=== PATIENT | female | born 1975 | race Caucasian/White ===

== ENCOUNTER → 2021-05-24 17:18 | Outpatient (CLI) | payer OTHER, SELFPAY ==
--- NOTE | ~2021-05-24 | MM_ITS ---
EXAMINATION: MM screening [facility] BI w maryjane HISTORY: Screening mammogram TECHNIQUE: Craniocaudal and mediolateral oblique 3-D tomosynthesis images were obtained and synthetic 2-D images were generated. CAD analysis was submitted and interpreted. COMPARISON: 08/18/2019, 06/08/2017, 10/31/2014 BREAST PARENCHYMAL COMPOSITION: There are scattered areas of fibroglandular density. FINDINGS: There is no evidence of suspicious mass, calcification, or architectural distortion to sugg est malignancy in either breast. There has been no suspicious interval change. IMPRESSION: 1. No mammographic evidence of malignancy. 2. Recommend routine screening mammography in one year. BI-RADS Category 1: Negative Reviewed, dictated and finalized at location A.
== END ==
PROVIDERS: Visit Provider Obstetrics & Gynecology
DX: Z12.31 Encounter for screening mammogram for malignant neoplasm of breast (principal)
CPT/HCPCS: 77063; 77067

== ENCOUNTER 2022-01-22 08:34 | Outpatient (CLI) | payer BC, SELFPAY ==
[2022-01-22 18:53] LABS: Basophils Percent Auto 0.5 % (0.2-1.2); Eosinophils Absolute Auto 0.1 K/mm3 (0-0.3); Eosinophils Percent Auto 1.3 % (0-4.4); Hematocrit 43.4 % (37.0-47.0); Hemoglobin 13.9 g/dL (12.0-15.0); Immature Granulocyte Absolute 0.01 K/mm3 (0.00-0.031); Immature Granulocyte Percent A 0.2 % (0-0.5); Lymphocytes Absolute Auto 2.74 K/mm3 (0.9-3.2); Lymphocytes Percent Auto 45.4 % (18.3-44.2); Mean Corpuscular Hemoglobin 30.5 pg (26-34); Mean Corpuscular Volume 95.4 fl (80-100); Mean Platelet Volume 10.4 fl (7.4-10.4); Monocytes Absolute Auto 0.5 K/mm3 (0.1-0.6); Monocytes Percent Auto 7.6 % (2.6-8.5); Neutrophils Absolute Auto 2.7 K/mm3 (1.3-6.7); Platelet Count Result 244 k/mm3 (150-375); Red Blood Count 4.55 M/mm3 (4.2-5.4); Red Cell Distribution Width 12.6 % (11.5-14.5)
[2022-01-22 20:09] LABS: Serum Qual hCG Negative
[2022-01-22 20:10] LABS: SPREG INTERNAL CONTROL Positive
[2022-01-22 20:19] LABS: Alanine Aminotransferase 19 U/L (4-35); Albumin Level 4.2 g/dL (3.5-5.1); Alkaline Phosphatase 72 U/L (38-126); Anion Gap 8 mmol/L (8-16); Aspartate Amino Transferase 26 U/L (14-36); Bilirubin,Total 0.6 mg/dL (0.2-1.3); Blood Urea Nitrogen 12 mg/dL (7-17); Calcium 9.3 mg/dL (8.4-10.2); Carbon Dioxide 24 mmol/L (22-30); Chloride 104 mmol/L (98-107); Cholesterol 200 mg/dL (0-200); Estimated Glomerular Filt Rate > 60; Glucose 93 mg/dL (65-110); HDL Direct 75 mg/dL; Potassium 3.9 mmol/L (3.4-5.0); Sodium 136 mmol/L (137-145); Triglycerides 68 mg/dL (<150)
[2022-01-22 20:30] LABS: LDL Cholesterol Direct 114 mg/dL
[2022-01-22 21:08] LABS: Free T4 Free Thyroxine Reflex 0.89 ng/dL (0.78-2.19)
[2022-01-22 21:59] LABS: Total Triiodothyronine (T3) 1.54 NG/ML (0.97-1.69)
== END 2022-01-22 08:35 | disposition home or self-care (01) ==
PROVIDERS: PCP Family Medicine; Visit Provider Family Medicine
DX: Z00.00 Encounter for general adult medical examination without abnormal findings (principal); E66.9 Obesity, unspecified; R12 Heartburn; F41.9 Anxiety disorder, unspecified
CPT/HCPCS: 36415; 80053; 80061; 84439; 84443; 84480; 84703; 85025

== ENCOUNTER 2022-03-31 08:39 | Outpatient (CLI) | payer BC, SELFPAY ==
[2022-04-01 07:31] LABS: Free T4 Free Thyroxine Reflex 1.01 ng/dL (0.78-2.19)
[2022-04-01 08:29] LABS: Total Triiodothyronine (T3) 1.36 NG/ML (0.97-1.69)
[2022-04-03 05:53] LABS: Thyroid Peroxidase Antibodies <1 IU/mL (<9)
== END 2022-03-31 08:40 | disposition home or self-care (01) ==
PROVIDERS: PCP Family Medicine; Visit Provider Family Medicine
DX: R79.89 Other specified abnormal findings of blood chemistry (principal)
CPT/HCPCS: 36415; 84439; 84443; 84480; 86376

== ENCOUNTER → 2022-08-18 16:47 | Outpatient (CLI) | payer BC, SELFPAY ==
--- NOTE | ~2022-08-18 | MM_ITS ---
EXAMINATION: MM screening [facility] BI w maryjane HISTORY: Screening TECHNIQUE: Craniocaudal and mediolateral oblique 3-D tomosynthesis images were obtained and synthetic 2-D images were generated. CAD analysis was submitted and interpreted. COMPARISON: Comparison to multiple prior studies sequentially, with oldest reviewed study dated 06/08. BREAST PARENCHYMAL COMPOSITION: There are scattered areas of fibroglandular density. FINDINGS: There is no evidence of suspicious mass, calcification, or architectural distortion to sugg est malignancy in either breast. There has been no suspicious interval change. IMPRESSION: 1. No mammographic evidence of malignancy. 2. Recommend routine screening mammography in one year. BI-RADS Category 1: Negative Reviewed, dictated and finalized at location A.
== END ==
PROVIDERS: PCP Family Medicine; Visit Provider Obstetrics & Gynecology
DX: Z12.31 Encounter for screening mammogram for malignant neoplasm of breast (principal)
CPT/HCPCS: 77063; 77067

== ENCOUNTER → 2023-12-08 16:14 | Outpatient (CLI) | payer BC, SELFPAY ==
--- NOTE | ~2023-12-08 | MM_ITS ---
EXAMINATION: MM screening [facility] BI w maryjane HISTORY: Screening TECHNIQUE: Craniocaudal and mediolateral oblique 3-D tomosynthesis images were obtained and synthetic 2-D images were generated. CAD analysis was submitted and interpreted. COMPARISON: Comparison to multiple prior studies sequentially, with oldest reviewed study dated 10/10. BREAST PARENCHYMAL COMPOSITION: There are scattered areas of fibroglandular density. FINDINGS: There is no evidence of suspicious mass, calcification, or architectural distortion to sugg est malignancy in either breast. There has been no suspicious interval change. IMPRESSION: 1. No mammographic evidence of malignancy. 2. Recommend routine screening mammography in one year. BI-RADS Category 1: Negative Reviewed, dictated and finalized at location A. CO ARTIST
== END ==
PROVIDERS: PCP Obstetrics & Gynecology; Visit Provider Obstetrics & Gynecology
DX: Z12.31 Encounter for screening mammogram for malignant neoplasm of breast (principal)
CPT/HCPCS: 77063; 77067

== ENCOUNTER 2024-06-15 09:00 | Outpatient (CLI) | payer BC, SELFPAY ==
[2024-06-15 19:38] LABS: Hematocrit 42.1 % (37.0-47.0); Hemoglobin 13.6 g/dL (12.0-15.0); Mean Corpuscular HGB Conc 32.3 g/dl (32-36); Mean Corpuscular Hemoglobin 31.1 pg (26-34); Mean Corpuscular Volume 96.3 fl (80-100); Mean Platelet Volume 10.7 fl (7.4-10.4); Platelet Count Result 255 k/mm3 (150-375); Red Blood Count 4.37 M/mm3 (4.2-5.4); Red Cell Distribution Width 13.3 % (11.5-14.5); White Blood Count 5.1 K/mm3 (4.5-10.0)
[2024-06-15 19:50] LABS: Alanine Aminotransferase 23 U/L (6-35); Albumin Level 4.3 g/dL (3.5-5.1); Alkaline Phosphatase 62 U/L (38-126); Anion Gap 11 mmol/L (4-12); Aspartate Amino Transferase 63 U/L (14-36); Bilirubin,Total 0.5 mg/dL (0.2-1.3); Blood Urea Nitrogen 18 mg/dL (7-17); Calcium 9.8 mg/dL (8.4-10.2); Carbon Dioxide 25 mmol/L (22-30); Chloride 102 mmol/L (98-107); Cholesterol 187 mg/dL (0-200); Estimated Glomerular Filt Rate > 60; Glucose 97 mg/dL (65-110); HDL Direct 75 mg/dL; Potassium 4.3 mmol/L (3.4-5.0); Sodium 138 mmol/L (137-145); Triglycerides 76 mg/dL (<150)
[2024-06-15 20:04] LABS: LDL Cholesterol Direct 103 mg/dL
[2024-06-15 20:36] LABS: Vitamin D 25 Hydroxy 87.6 ng/mL
== END 2024-06-15 09:01 | disposition home or self-care (01) ==
PROVIDERS: PCP Family Medicine; Visit Provider Family Medicine
DX: Z00.00 Encounter for general adult medical examination without abnormal findings (principal); E66.9 Obesity, unspecified; F41.9 Anxiety disorder, unspecified; R12 Heartburn; R79.89 Other specified abnormal findings of blood chemistry
CPT/HCPCS: 36415; 80053; 80061; 82306; 84443; 85027

== ENCOUNTER 2024-12-12 00:20 | Day surgery (SDC) | payer BC, SELFPAY ==
[2024-11-30 11:08] VITALS: BMI 35.2
--- OUTSIDE RECORDS SUMMARY | 2024-12-12 00:22 | XMS_ITS | Clinical Summary ---
Author Organization [address] Address [address] [place] [id number] Care Team Providers Care Veneer Gluer Name Role Phone Ky Acuña MD Primary Care Provider [phone] Allergies No known active allergies Medications buPROPion XL (WELLBUTRIN XL) 150 mg 24 hr tablet Take 1 tablet (150 mg total) by mouth daily 1 Active acyclovir (ZOVIRAX) 400 mg tablet TAKE 2 TABLETS BY MOUTH TWICE DAILY FOR 5 DAYS 1 Active Nortrel 7/7/7, 28, 0.5/0.75/1 mg- 35 mcg per tablet Take 1 tablet by mouth daily 1 Active ergocalciferol, vitamin D2, (VITAMIN D2 ORAL) Take by mouth Active ELDERBERRY FRUIT ORAL Take by mouth Activ e multivitamin capsule Take 1 capsule by mouth daily Active magnesium oxide 400 mg magnesium capsule Take by mouth Active benzonatate (TESSALON) 200 mg capsuleIndicati ons:Viral URI with cough Take 1 capsule (200 mg total) by mouth 3 (three) times a day as needed for cough 30 capsule 3 Active Additional Information Patient not taking.Reported on 11/01/2024 Active Problems No known active problems Encounters Date Type Department Care Team Description 11/03/2024 Telephone [facility] at [address] [place] [address] Ирина Bah MA 11/01/2024 10:15 AM GREENHOUSE WORKER Office Visit [facility] at [address] [place] [id number] Jie Lawson, WILMER Acute cystitis with hematuria (Primary Dx); UTI symptoms 11/01/2024 10:09 AM GREENHOUSE WORKER - 11/01/2024 11:59 PM GREENHOUSE [place] [address] UTI symptoms Discharge Disposition: Discharge to home or self care from Last 3 Months Social History Tobacco Use Types Packs/Day Years Used Date Smoking Tobacco: Never Smokeless Tobacco: Never Tobacco Cessation:Counseling Given: Not Answered Comments No Sex and Gender Information Value Date Recorded Sex Assigned at Not on file Legal Sex Female 5:40 PM GREENHOUSE WORKER Gender Identity Not on file Sexual Orientation Not on file Obstetrics History Last Filed Vital Signs Vital Sign Reading Time Taken Comments Blood Pressure 110/62 11/01/2024 10:17 AM GREENHOUSE WORKER Pulse 84 11/01/2024 10:17 AM GREENHOUSE WORKER Temperature 36.7 ??C (98.1 ??F) 11/01/2024 10:[address] Respiratory Rate 18 11/01/2024 10:17 AM GREENHOUSE WORKER Oxygen Saturation 99% 11/01/2024 10:17 AM GREENHOUSE WORKER Inhaled Oxygen Concentration - - Weight 83.9 kg (185 lb) 11/01/2024 10:17 AM GREENHOUSE WORKER Height 152.4 cm (5') 11/01/2024 10:17 AM GREENHOUSE WORKER Body Mass Index 36.13 11/01/2024 10:17 AM GREENHOUSE WORKER Plan of Treatment Health Maintenance Due Date Last Done Comments Breast Cancer Screening-Mammogram 1974 Cervical Cancer Screening 1974 Colon Cancer Screening-Colonoscopy 1974 Depression Screening 1974 Hepatitis C Screening 1974 DTaP/Tdap/Td Vaccine (1 - Tdap) 1985 Hepatitis B Screening 1992 Regular Well Visit/Exam 18-64 1992 Zoster Vaccine (1 of 2) 2024 Covid-19 Vaccine (3 - 2023-2 5 season) 2024 01/19/2021, 12/22/2020 Influenza Vaccine (#1) 2024 Pneumococcal vaccine <65 Aged Out No longer eligible based on patient's age to complete this topic Procedures Procedure Name Priority Date/Time Associated Diagnosis Comments POCT URINALYSIS DIPSTICK Routine 11/01/2024 10:18 AM GREENHOUSE WORKER UTI symptoms URINE CULTURE Routine 11/01/2024 10:09 AM GREENHOUSE WORKER UTI symptoms from Last 3 Months Results * (ABNORMAL) POCT urinalysis dipstick (11/01/2024 10:18 AM GREENHOUSE WORKER) Color, Urine, POC Red Clarity, ur, POC Cloudy(A) Clear Glucose, ur, POC Negative Negative MG/DL Bilirubin, ur, POC Negative Negative, Small, Moderate, Large Ketones, ur, POC Negative Negative Specific [place], POC 1.030 1.003 - 1.030 Blood, ur, POC Large(A) Negative pH, ur, POC 6.5 5.0 - 8.0 Protein, ur, POC 100.(A) Negative Urobilinogen, urine, POC 0.2 0.2 - 1.0 mg/dL Nitrite, ur, POC Positive(A) Negative Leukocytes, ur, POC Trace(A) Negative Lot Number [id number] Urine 11/01/2024 10:1 8 AM GREENHOUSE WORKER Jie Lawson NP POINT OF CARE TEST ORDERAB LES Final Result * (ABNORMAL) Urine culture Urine, clean voided (11/01/2024 10:09 AM GREENHOUSE WORKER) Report Final Report: Greater than or equal to 100,000 colonies/mL of Escherichia coli Plus growth of clinically insignificant bacterial jose. (.) Comment:Testing performed by : [facility], [address], [place]., [address] Organism ESCHERICHIA COLI CLINT Organism PLUS GROWTH OF CLINICALLY INSIGNIFICANT JOSE. CLINT Urine, clean voided 11/01/2024 10:09 AM GREENHOUSE WORKER 11/01/2024 6:18 PM GREENHOUSE WORKER Narrative [facility] - 11/03/2024 10:11 AM GREENHOUSE WORKER Testing performed by [facility] Microbiology Laboratory ([phone]) Organism Antibiotic Method Susceptibility Escherichia coli Ampicillin INTERPRETATION Susceptible Escherichia coli Cefazolin INTERPRETATION Susceptible Escherichia coli Nitrofurantoin INTERPRETATION Susceptible Escherichia coli Gentamicin INTERPRETATION Susceptible Escherichia coli Trimethoprim with Sulfamethoxazole IN TERPRETATION Susceptible Escherichia coli Meropenem INTERPRETATION Susceptible Escherichia coli Cefepime INTERPRETATION Susceptible Escherichia coli Ciprofloxacin INTERPRETATION Susceptible Escherichia coli Ceftazidime INTERPRETATION Susceptible Escherichia coli Ceftriaxone INTERPRETATION Susceptible Escherichia coli Piperacillin/Tazobactam INTERPRETATIO N Susceptible Escherichia coli Cephalexin INTERPRETATION Susceptible Escherichia coli Cefuroxime-axetil INTERPRETATION Susceptible Escherichia coli Cefdinir INTERPRETATION Susceptible us Jie Lawson NP LAB MICROBIOLOGY - GENERAL ORDERABLES Final Result [facility] [address] [place] [address] from Last 3 Months Insurance [employer] [place] [employer] [place] Care Teams Veneer Gluer Relationship Specialty Start Date End Date Ky Acuña MD PCP - General Family Practice 07/13/23
--- OUTSIDE RECORDS SUMMARY | 2024-12-12 00:22 | XMS_ITS | Referral Summary ---
Author Organization [facility] [address] [place] [address] Address [address] [place] [address] Care Team Providers Care Client Development Director Name Role Phone Ky Acuña MD Primary Care Provider [phone] Encounters Date Type Department Care Team Description 11/03/2024 Telephone [facility] Medical [facility] Convenient Care at [address] [place] [address] Ирина Bah MA 11/01/2024 10:09 AM WOOD COATER - 11/01/2024 11:59 PM WOOD COATER [place] [address] UTI symptoms Discharge Disposition: Discharge to home or self care 11/01/2024 10:15 AM WOOD COATER Office Visit [facility] Medical [facility]ient Care at [place] [address] [place] [address] Jie Lawson NP Acute cystitis with hematuria (Primary Dx); UTI symptoms from Last 3 Months Allergies No known active allergies Medications buPROPion XL (WELLBUTRIN XL) 150 mg 24 hr tablet Take 1 tablet (150 mg total) by mouth daily 1 Active acyclovir (ZOVIRAX) 400 mg tablet TAKE 2 TABLETS BY MOUTH TWICE DAILY FOR 5 DAYS 1 Active Nortrel 7/7/, 28, 0.5/0.75/1 mg- 35 mcg per tablet [...] 11/01/2024 Active Problems No known active problems Social History Tobacco Use Types Packs/Day Years Used Date Smoking Tobacco: Never Smokeless Tobacco: Never Tobacco Cessation:Counseling Given: Not Answered Comments No Sex and Gender Information Value Date Recorded Sex Assigned at Not on file Legal Sex Female 5:40 PM WOOD COATER Gender Identity Not on file Sexual Orientation Not on file Last Filed Vital Signs Vital Sign Reading Time Taken Comments Blood Pressure 110/62 11/01/2024 10:17 AM WOOD COATER Pulse 84 11/01/2024 10:17 AM WOOD COATER Temperature 36.7 ??C (98.1 ??F) 11/01/2024 10:[address] Respiratory Rate 18 11/01/2024 10:17 AM WOOD COATER Oxygen Saturation 99% 11/01/2024 10:17 AM WOOD COATER Inhaled Oxygen Concentration - - Weight 83.9 kg (185 lb) 11/01/2024 10:17 AM WOOD COATER Height 152.4 cm (5') 11/01/2024 10:17 AM WOOD COATER Body Mass Index 36.13 11/01/2024 10:17 AM WOOD COATER Plan of Treatment Not on file Procedures Procedure Name Priority Date/Time Associated Diagnosis Comments POCT URINALYSIS DIPSTICK Routine 11/01/2024 10:18 AM WOOD COATER UTI symptoms URINE CULTURE Routine 11/01/2024 10:09 AM WOOD COATER UTI symptoms from Last 3 Months Results * (ABNORMAL) POCT urinalysis dipstick (11/01/2024 10:18 AM WOOD COATER) Color, Urine, POC Red Clarity, ur, POC Cloudy(A) Clear Glucose, ur, POC Negative Negative MG/DL Bilirubin, ur, POC Negative Negative, Small, Moderate, Large Ketones, ur, POC Negative Negative Specific [place], POC 1.030 1.003 - 1.030 Blood, ur, POC Large(A) Negative pH, ur, POC 6.5 5.0 - 8.0 Protein, ur, POC 100.(A) Negative Urobilinogen, urine, POC 0.2 0.2 - 1.0 mg/dL Nitrite, ur, POC Positive(A) Negative Leukocytes, ur, POC Trace(A) Negative Lot Number [id number] Urine 11/01/2024 10:1 8 AM WOOD COATER Jie Lawson NP POINT OF CARE TEST ORDERAB LES Final Result * (ABNORMAL) Urine culture Urine, clean voided (11/01/2024 10:09 AM WOOD COATER) Report Final Report: Greater than or equal to 100,000 colonies/mL of Escherichia coli Plus growth of clinically insignificant bacterial jose. (.) Comment:Testing performed by : [facility], [address] [place]., [address] Organism ESCHERICHIA COLI CLINT Organism PLUS GROWTH OF CLINICALLY INSIGNIFICANT JOSE. CLINT Urine, clean voided 11/01/2024 10:09 AM WOOD COATER 11/01/2024 6:18 PM WOOD COATER Narrative [facility] - 11/03/2024 10:11 AM WOOD COATER Testing performed by [facility] Microbiology Laboratory ([phone]) Organism Antibiotic Method Susceptibility Escherichia coli Ampicillin [...] INTERPRETATION Susceptible Escherichia coli Cefdinir INTERPRETATION Susceptible Jie Lawson NP LAB MICROBIOLOGY - GENERAL ORDERABLES Final Result [facility] [address] Department [place] [address] from Last 3 Months Insurance [employer] [place] Care Teams Client Development Director Relationship Specialty Start Date End Date Ky Acuña MD PCP - General Family Practice 07/13/23
--- OUTSIDE RECORDS SUMMARY | 2024-12-12 00:23 | XMS_ITS | Referral Summary ---
Author Organization [facility] Address [address] [place] [address] Care Team Providers Care Teacher Associate Name Role Phone Unknown, Provider Primary Care Provider Unavaila ble Source Comments [facility],non-owned Affiliates and Associated Physician Practices is amultiple site organization consisting of ambulatory clinics and hospital sitesin [place], [place] and [place]. This disclosure is being madepursuant to the Care Everywhere program and may not contain all information available regarding this patient. Last updated 18[employer] [facility] Allergies No known active allergies Medications Be aware that medications may not be up to date on this document. Always verify current medications with the patient. No known medications Social History Tobacco Use Types Packs/Day Years Used Date Smoking Tobacco: Never Sex and Gender Information Value Date Recorded Sex Assigned at Not on file Gender Identity Not on file Sexual Orientation Not on file Last Filed Vital Signs Vital Sign Reading Time Taken Comments Blood Pressure 118/70 12/30/2017 12:12 PM ADVERTISING CONSULTANT Pulse 93 12/30/2017 12:12 PM ADVERTISING CONSULTANT Temperature 37.3 ??C (99.1 ??F) 12/30/2017 12:[address] Respiratory Rate 17 12/07/2016 10:28 AM ADVERTISING CONSULTANT Oxygen Saturation 97% 12/07/2016 10:28 AM ADVERTISING CONSULTANT Inhaled Oxygen Concentration - - Weight 68 kg (150 lb) 12/30/2017 12:12 PM ADVERTISING CONSULTANT Height 152.4 cm (5') 12/30/2017 12:12 PM ADVERTISING CONSULTANT Body Mass Index 29.29 12/30/2017 12:12 PM ADVERTISING CONSULTANT Plan of Treatment Not on file Care Teams Teacher Associate Relationship Specialty Start Date End Date Unknown, Provider PCP - General 12/07/16
--- OUTSIDE RECORDS SUMMARY | 2024-12-12 00:23 | XMS_ITS | Patient Health Summary ---
Author Organization [facility] Address [address] [place] [place] [address] Care Team Providers Care Telecom Analyst Name Role Phone Unknown, Provider Primary Care Provider Unavaila ble Note from [facility],non-owned Affiliates and Associated Physician Practices is amultiple site organization consisting of ambulatory clinics and hospital sitesin [place], [place], [place] and [place]. This disclosure is being madepursuant to the Care Everywhere program and may not contain all information available regarding this patient. Last updated 18.[facility] Allergies No known active allergies Medications Be [...] Comments Blood Pressure 118/70 12/30/2017 12:12 PM CONVENTIONAL MACHINIST Pulse 93 12/30/2017 12:12 PM CONVENTIONAL MACHINIST Temperature 37.3 ??C (99.1 ??F) 12/30/2017 12:[address] Respiratory Rate 17 12/07/2016 10:28 AM CONVENTIONAL MACHINIST Oxygen Saturation 97% 12/07/2016 10:28 AM CONVENTIONAL MACHINIST Inhaled Oxygen Concentration - - Weight 68 kg (150 lb) 12/30/2017 12:12 PM CONVENTIONAL MACHINIST Height 152.4 cm (5') 12/30/2017 12:12 PM CONVENTIONAL MACHINIST Body Mass Index 29.29 12/30/2017 12:12 PM CONVENTIONAL MACHINIST Procedures * INFLUENZA A+B - POINT OF CARE (AMB)(Performed 12/30/2017) Performed for Viral respiratory illness * STREP A SCREEN - POINT OF CARE (AMB) STL(Performed 12/30/2017) Performed for Viral respiratory illness * STREP A SCREEN - POINT OF CARE (AMB) STL(Performed 12/07/2016) Performed for Sore throat Results * STREP A SCREEN - POINT OF CARE (AMB) STL (12/30/2017) Only the most recent of2 resultswithin the time period is included. Strep A Rapid POCT Negative Negative Strep A Internal Control Present Lot # [id number] Expiration Date [address] Throat ENTIRE THROAT (SURFACE REGION OF NECK) / Unknown 12/30/2017 Verito Levine APRN-[facility] - POINT OF CARE ORDERABLES * INFLUENZA A+B - POINT OF CARE (AMB) (12/30/2017) Influenza A Antigen Rapid Negative Negative Influenza B Antigen Rapid Negative Negative Influenza Internal Control YES NEGATIVE - POSITIVE Influenza Lot Number [id number] Influenza Expiration Date Other NASOPHARYNGEAL SWAB / Unknown 12/30/2017 [facility] - POINT OF CARE ORDERABLES Care Teams Telecom Analyst Relationship Specialty Start Date End Date Unknown, Provider PCP - General 12/07/16
--- OUTSIDE RECORDS SUMMARY | 2024-12-12 00:23 | XMS_ITS | Clinical Summary ---
Author Organization [facility] Address [address] [place] [address] Care Team Providers Care Corpsman Name Role Phone Unknown, Provider Primary Care Provider Unavaila ble Source Comments [facility],non-owned Affiliates and Associated Physician Practices is amultiple site organization consisting of ambulatory clinics and hospital sitesin [place], [place], [place] and [place]. This disclosure is being madepursuant to the Care Everywhere program and may not contain all information available regarding this patient. Last updated 18.[employer] [facility] Allergies No known active allergies Medications Be [...] Comments Blood Pressure 118/70 12/30/2017 12:12 PM CASUALTY CLAIM ADJUSTER Pulse 93 12/30/2017 12:12 PM CASUALTY CLAIM ADJUSTER Temperature 37.3 ??C (99.1 ??F) 12/30/2017 12:[address] Respiratory Rate 17 12/07/2016 10:28 AM CASUALTY CLAIM ADJUSTER Oxygen Saturation 97% 12/07/2016 10:28 AM CASUALTY CLAIM ADJUSTER Inhaled Oxygen Concentration - - Weight 68 kg (150 lb) 12/30/2017 12:12 PM CASUALTY CLAIM ADJUSTER Height 152.4 cm (5') 12/30/2017 12:12 PM CASUALTY CLAIM ADJUSTER Body Mass Index 29.29 12/30/2017 12:12 PM CASUALTY CLAIM ADJUSTER Plan of Treatment Health Maintenance Due Date Last Done Comments KYLE (AGES 45-75) - COL ON CA SCREENING 1974 COLON MONITORING 1974 COLONOSCOPY - COLON CA SCREENING 1974 CT COLONOGRAPHY - COLON CA SCREENING 1974 Colorectal Cancer Screening 1974 FIT - COLON CA SCREENING 1974 FLEX SIG - COLON CA SCREENING 1974 LIPID TESTING 1974 MAMMOGRAM 1974 PAP SMEAR 1974 HIV SCREENING 1989 HEPATITIS C SCREENING 05/07/1992 DTAP/TDAP/TD VACCINES (1 - Tdap) 1993 HEPATITIS B VACCINE (1 of 3 - 19+ 3-dose series) 1993 SCREENING FOR DIABETES 12/30/2017 PNEUMOCOCCAL VACCINE 50+ (1 of 1 - PCV) 2024 ZOSTER VACCINE (1 of 2) 2024 COVID-19 VACCINE (1 - 2023-2 5 season) 2024 INFLUENZA VACCINE (#1) 2024 DEPRESSION SCREENING 11/09/2024 HIB VACCINE Aged Out No longer eligi ble based on patient's age to complete this topic HPV VACCINE Aged Out No longer eligi ble based on patient's age to complete this topic MENINGOCOCCAL (Group B) VACCINE Aged Out No longer eligible based on patient's age to complete this topic MENINGOCOCCAL VACCINE Aged Out No marva melina eligible based on patient's age to complete this topic PNEUMOCOCCAL VACCINE Aged Out No long er eligible based on patient's age to complete this topic Care Teams Corpsman Relationship Specialty Start Date End Date Unknown, Provider PCP - General 12/07/16
[2024-12-12 06:23] VITALS: BP 115/78; PULSE 104; RESP 16; TEMP 36.1; O2SAT 100
[2024-12-12 06:29] LABS: BEDSIDEPREGUCG Negative (Negative)
[2024-12-12] MEDS: LACTATED RINGERS 1,000 ML 150 ML IV CONT (06:34)
--- NOTE | 2024-12-12 07:15 | WPDANESEPPF ---
Anes - Initial Pre Proc Eval Procedure: Operation Date: 12/12/24 07:30 Proposed Procedures p Screening Colonoscopy - Tremayne Doss MD Date/Time: 12/12/24 07:15 Surgeon: Tremayne Doss MD Pre Op Diagnosis: screening malignant neoplasm colon Patient Data Age: 49 Gender: F Height: 1.52 m Weight: 80.7 kg Last Vital Signs Temp 97.0 F L 12/12/24 06:23 Pulse 104 H 12/12/24 06:23 Resp 16 12/12/24 06:23 BP 115/78 12/12/24 06:23 Pulse Ox 100 12/12/24 06:23 O2 Del Method Room Air 12/12/24 06:23 Allergies Allergy/AdvReac Type Severity Reaction Status Date / Time No Known Allergies Allergy Verified 12/12/24 06:17 Home Medications ?Medication ?Instructions ?Recorded ?Confirmed ?Type norgestimate-ethinyl estradiol 1 tablet PO DAILY 05/09/20 12/12/24 History 0.18 mg/0.215mg/0.25mg-35 mcg(28)tablet (Tri-Sprintec (28)) fluticasone propionate 50 1 spray intranasal BID #16 grams 01/26/24 11/30/24 Rx mcg/actuation nasal spray,suspension (Flonase Allergy Relief) acyclovir 400 mg tablet 800 mg (2 x 400 mg) PO BID PRN 11/30/24 12/12/24 Rx fever blister #20 tabs cholecalciferol (vitamin D3) 25 25 mcg PO DAILY 11/30/24 12/12/24 History mcg (1,000 unit) capsule (Vitamin D3) elderberry fruit 200 mg capsule 400 mg PO .qday 11/30/24 12/12/24 History multivitamin (Daily Multi-Vitamin 1 tablet PO DAILY 11/30/24 12/12/24 History tablet) Laboratory Tests 12/12/24 06:23 POC Urine HCG, Qual Negative (Negative) Patient hx anesthesia problems: none Family hx anesthesia problems: none Results Review: All pre-operative results and documents have been reviewed as part of the pre-operative evaluation. [facility] Past Medical History Medical History (Updated 06/16/24 @ 20:21 by Ky Acuña MD) Heartburn Anxiety Social History Social History Smoking status: Never smoker Alcohol intake: current Drinks per week: 3 Alcohol use details: once a month socially Substance use: never Substance use type: does not use Living arrangements: with family Spiritual care concerns: No Anes - Eval Final PreProcedure Day of Procedure 12/12/24 07:15 Patient weight: obese Heart: regular rate and rhythm Lungs: clear to auscultation Airway: Mallampati scale class II Neurological: alert and oriented Last oral intake: >/= 8 hours ASA classification: II Emergent: no Anesthetic plan: proceed Anesthesia type and monitoring: general GIVS and standard monitoring Results Review: All pre-operative results and documents have been reviewed as part of the pre-operative evaluation. Informed Consent: The patient's anesthetic plan and its attendant risks and benefits were discussed with the patient/family/POA. Questions were solicited and answers provided to the satisfaction of the patient/family/POA.
--- NOTE | 2024-12-12 07:30 | PM.HPGS ---
History of Present Illness History of Present Illness Consent: Risks, benefits, and alternatives have been discussed and questions answered. Patient agrees to proceed with procedure. Chief complaint: screening malignant neoplasm colon Narrative: Hansa Belcher is a 49 year old female here for first screening colonoscopy Review of Systems Review of Systems: All systems reviewed & are unremarkable except as noted in HPI and below PMFSH Past Medical History Medical History (Updated 06/16/24 @ 20:21 by Ky Acuña MD) Heartburn Anxiety Social History Social History Smoking status: Never smoker Alcohol intake: current Drinks per week: 3 Alcohol use details: once a month socially Substance use: never Substance use type: does not use Living arrangements: with family Spiritual care concerns: No Meds Home Medications and Allergies Home Medications ?Medication ?Instructions ?Recorded ?Confirmed ?Type norgestimate-ethinyl estradiol 1 tablet PO DAILY 05/09/20 12/12/24 History 0.18 mg/0.215mg/0.25mg-35 mcg(28)tablet (Tri-Sprintec (28)) fluticasone propionate 50 1 spray intranasal BID #16 grams 01/26/24 11/30/24 Rx mcg/actuation nasal spray,suspension (Flonase Allergy Relief) acyclovir 400 mg tablet 800 mg (2 x 400 mg) PO BID PRN 11/30/24 12/12/24 Rx fever blister #20 tabs cholecalciferol (vitamin D3) 25 25 mcg PO DAILY 11/30/24 12/12/24 History mcg (1,000 unit) capsule (Vitamin D3) elderberry fruit 200 mg capsule 400 mg PO .qday 11/30/24 12/12/24 History multivitamin (Daily Multi-Vitamin 1 tablet PO DAILY 11/30/24 12/12/24 History tablet) Allergies Allergy/AdvReac Type Severity Reaction Status Date / Time No Known Allergies Allergy Verified 12/12/24 06:17 Vital Signs Vital Signs - 24 hr 12/12/24 06:23 Temperature 97.0 F L Pulse Rate 104 H Respiratory Rate 16 Blood Pressure 115/78 Pulse Oximetry 100 Oxygen Delivery Room Air Exam Const: General: comfortable and no acute distress HENMT: Face/Nose/Sinus: Normal nares present Eyes: General: appearance normal, both eyes and all related structures Neck: Neck: no JVD Resp: Auscultation: clear to auscultation bilaterally Cardio: Rate: regular rate Rhythm: regular rhythm GI: Inspection: non-distended GI Palp: Yes Soft to palpation Skin: General skin exam: normal color Neuro: General: gait normal Speech: normal speech Extrem: General: normal to inspection Psych: Mental Status: mental status grossly normal Assessment and Plan Assessment and plan (1) Colon cancer screening: Code(s): Z12.11 - Encounter for screening for malignant neoplasm of colon Status: Acute Assessment and Plan: colonoscopy
[2024-12-12 07:43] VITALS: BP 136/99; PULSE 79; RESP 17; O2SAT 98
[2024-12-12 07:53] VITALS: BP 120/81; PULSE 82; RESP 20; O2SAT 100
[2024-12-12 08:03] VITALS: BP 123/72; PULSE 78; RESP 20; O2SAT 100
== END 2024-12-12 08:15 | disposition home or self-care (01) ==
PROVIDERS: Anesthesiology; PCP Family Medicine; Visit Provider Internal Medicine Gastroenterology
PROC: 0DJD8ZZ Inspection of Lower Intestinal Tract, Via Natural or Artificial Opening Endoscopic (ICD-10-PCS; CPT 45378; principal; 2024-12-12 07:30)
DX: Z12.11 Encounter for screening for malignant neoplasm of colon (principal); K63.5 Polyp of colon; K57.30 Diverticulosis of large intestine without perforation or abscess without bleeding; K64.8 Other hemorrhoids; E66.9 Obesity, unspecified; Z68.34 Body mass index [BMI] 34.0-34.9, adult
CPT/HCPCS: 45380; 88305; J2704; J7120

== ENCOUNTER 2025-05-08 15:12 | Outpatient (CLI) | payer BC, SELFPAY ==
--- NOTE | ~2025-05-08 | MM_ITS ---
EXAMINATION: MM screening mikael BI w maryjane HISTORY: Screening mammogram TECHNIQUE: Craniocaudal and mediolateral oblique 3-D tomosynthesis images were obtained and synthetic 2-D images were generated. CAD analysis was submitted and interpreted. COMPARISON: No prior mammogram is available for comparison at this institution. BREAST PARENCHYMAL COMPOSITION:Not Dense. The breasts are almost entirely fatty FINDINGS: No suspicious mass, calcification, or architectural distortion are identified in either rocco ast to suggest malignancy. There has been no suspicious interval change. IMPRESSION: No mammographic evidence of malignancy. Recommend routine screening mammography in one year. BI-RADS Category 1: Negative Reviewed, dictated and finalized at location .
== END 2025-05-08 15:13 | disposition home or self-care (01) ==
LOC: MICIMG 15:13
PROVIDERS: PCP Family Medicine; Visit Provider Obstetrics & Gynecology
DX: Z12.31 Encounter for screening mammogram for malignant neoplasm of breast (principal)
CPT/HCPCS: 77063; 77067

== ENCOUNTER 2025-06-13 08:43 | Outpatient (CLI) | payer BC, SELFPAY ==
--- OUTSIDE RECORDS SUMMARY | 2025-06-13 08:48 | XMS_ITS | Clinical Summary ---
Author Organization [address] Address [address] [place] [id number] Care Team Providers Care Bridge Repairer Name Role Phone Ky Acñua MD Primary Care Provider [phone] Allergies No known active allergies Medications buPROPion [...] on file Legal Sex Female 5:40 PM SENIOR FINANCIAL REPORTING ANALYST Gender Identity Not on file Sexual Orientation Not on file Obstetrics History Last Filed Vital Signs Vital Sign Reading Time Taken Comments Blood Pressure 110/62 11/01/2024 10:17 AM SENIOR FINANCIAL REPORTING ANALYST Pulse 84 11/01/2024 10:17 AM SENIOR FINANCIAL REPORTING ANALYST Temperature 36.7 C (98.1 F) 11/01/2024 10:17 AM SENIOR FINANCIAL REPORTING ANALYST Respiratory Rate 18 11/01/2024 10:17 AM SENIOR FINANCIAL REPORTING ANALYST Oxygen Saturation 99% 11/01/2024 10:17 AM SENIOR FINANCIAL REPORTING ANALYST Inhaled Oxygen Concentration - - Weight 83.9 kg (185 lb) 11/01/2024 10:17 AM SENIOR FINANCIAL REPORTING ANALYST Height 152.4 cm (5') 11/01/2024 10:17 AM SENIOR FINANCIAL REPORTING ANALYST Body Mass Index 36.13 11/01/2024 10:17 AM SENIOR FINANCIAL REPORTING ANALYST Plan of Treatment Health Maintenance Due Date Last Done Comments Breast Cancer Screening-Mammogram 1974 Cervical Cancer Screening 1974 Colon Cancer Screening-Colonoscopy 1974 Depression Screening 1974 Hepatitis C Screening 1974 DTaP/Tdap/Td Vaccine (1 - Tdap) 1985 Hepatitis B Screening 1992 Regular Well Visit/Exam 18-64 1992 Zoster Vaccine (1 of 2) 2024 Covid-19 Vaccine (3 - 2023-2 5 season) 2024 01/19/2021, 12/22/2020 Influenza Vaccine (#1) 2025 Pneumococcal vaccine <65 Aged Out No longer eligible based on patient's age to complete this topic Insurance [facility] Care Teams Bridge Repairer Relationship Specialty Start Date End Date Ky Acuña MD PCP - General Family Practice 07/13/23
--- OUTSIDE RECORDS SUMMARY | 2025-06-13 08:48 | XMS_ITS | Referral Summary ---
Author Organization [address] Address [address] [place] [id number] Care Team Providers Care Banquet Cook Name Role Phone Ky Acuña MD Primary Care Provider [phone] Allergies No known active allergies Medications buPROPion [...] on file Legal Sex Female 5:40 PM COKE INSPECTOR Gender Identity Not on file Sexual Orientation Not on file Last Filed Vital Signs Vital Sign Reading Time Taken Comments Blood Pressure 110/62 11/01/2024 10:17 AM COKE INSPECTOR Pulse 84 11/01/2024 10:17 AM COKE INSPECTOR Temperature 36.7 C (98.1 F) 11/01/2024 10:17 AM COKE INSPECTOR Respiratory Rate 18 11/01/2024 10:17 AM COKE INSPECTOR Oxygen Saturation 99% 11/01/2024 10:17 AM COKE INSPECTOR Inhaled Oxygen Concentration - - Weight 83.9 kg (185 lb) 11/01/2024 10:17 AM COKE INSPECTOR Height 152.4 cm (5') 11/01/2024 10:17 AM COKE INSPECTOR Body Mass Index 36.13 11/01/2024 10:17 AM COKE INSPECTOR Plan of Treatment Not on file Insurance [employer] Care Teams Banquet Cook Relationship Specialty Start Date End Date Ky Acuña MD PCP - General Family Practice 07/13/23
--- OUTSIDE RECORDS SUMMARY | 2025-06-13 08:48 | XMS_ITS | Clinical Summary ---
Author Organization [facility] Address [address] [place] [address] Care Team Providers Care Pathology Technologist Name Role Phone Unknown, Provider Primary Care Provider Unavaila ble Source Comments [facility],non-owned Affiliates and Associated Physician Practices is amultiple site organization consisting of ambulatory clinics and hospital sitesin [place], [place], [place] and [place]. This disclosure is being madepursuant to the Care Everywhere program and may not contain all information available regarding this patient. Last updated 18.[facility] Allergies No known active allergies Medications * Be aware that medications may not be up to date on this document. Alwaysverify current medications with the patient. No known medications Social History Tobacco Use Types Packs/Day Years Used Date Smoking Tobacco: Never Comments Unknown Sex and Gender Information Value Date Recorded Sex Assigned at Not on file Legal Sex Female 9:52 AM FORMING TUBE SELECTOR Gender Identity Not on file Sexual Orientation Not on file Last Filed Vital Signs Vital Sign Reading Time Taken Comments Blood Pressure 118/70 12/30/2017 12:12 PM FORMING TUBE SELECTOR Pulse 93 12/30/2017 12:12 PM FORMING TUBE SELECTOR Temperature 37.3 C (99.1 F) 12/30/2017 12:12 PM FORMING TUBE SELECTOR Respiratory Rate 17 12/07/2016 10:28 AM FORMING TUBE SELECTOR Oxygen Saturation 97% 12/07/2016 10:28 AM FORMING TUBE SELECTOR Inhaled Oxygen Concentration - - Weight 68 kg (150 lb) 12/30/2017 12:12 PM FORMING TUBE SELECTOR Height 152.4 cm (5') 12/30/2017 12:12 PM FORMING TUBE SELECTOR Body Mass Index 29.29 12/30/2017 12:12 PM FORMING TUBE SELECTOR Plan of Treatment Health Maintenance Due Date Last Done Comments COLOGUARD (AGES 45-75) - COL ON CA SCREENING 1974 COLON MONITORING 1974 COLONOSCOPY - COLON CA SCREENING 1974 CT COLONOGRAPHY - COLON CA SCREENING 1974 Colorectal Cancer Screening 1974 FIT - COLON CA SCREENING 1974 FLEX SIG - COLON CA SCREENING 1974 LIPID TESTING 1974 MAMMOGRAM 1974 HIV SCREENING 1989 HEPATITIS C SCREENING 05/07/1992 DTAP/TDAP/TD VACCINES (1 - Tdap) 1993 HEPATITIS B VACCINE (1 of 3 - 19+ 3-dose series) 1993 PAP SMEAR 1995 SCREENING FOR DIABETES 12/30/2017 PNEUMOCOCCAL VACCINE 50+ (1 of 1 - PCV) 2024 ZOSTER VACCINE (1 of 2) 2024 COVID-19 VACCINE (1 - 2023-2 5 season) 2024 DEPRESSION SCREENING 11/09/2024 INFLUENZA VACCINE (#1) 2025 HIB VACCINE Aged Out No longer eligi ble based on patient's age to complete this topic HPV VACCINE Aged Out No longer eligi ble based on patient's age to complete this topic MENINGOCOCCAL (Group B) VACC INE SHARED DECISION-MAKING Aged Out No longer eligibl e based on patient's age to complete this topic MENINGOCOCCAL GROUPS A/C/Y/W VACCINE Aged Out No longer eligible b ased on patient's age to complete this topic Insurance COUNT INCLUDES [facility] Care Teams Pathology Technologist Relationship Specialty Start Date End Date Unknown, Provider PCP - General 12/07/16
--- OUTSIDE RECORDS SUMMARY | 2025-06-13 08:48 | XMS_ITS | Clinical Summary ---
Author Organization [facility] Address [address] [place] [phone] Phone Care Team Providers Care Die Cleaner Name Role Phone Ky Acuña MD Primary Care Provider [phone] Allergies No known active allergies Medications No known medications Active Problems No known active problems Social History Tobacco Use Types Packs/Day Years Used Date Smoking Tobacco: Never Smokeless Tobacco: Never Tobacco Cessation:Counseling Given: Not Answered Alcohol Use Standard Drinks/Week Comments Not Currently 0 (1 standard drink = 0.6 oz pur e alcohol) Sexually Active Control Partners Comments Yes Comments No Sex and Gender Information Value Date Recorded Sex Assigned at Not on file Legal Sex Female 8:42 PM CDT Gender Identity Not on file Sexual Orientation Not on file Last Filed Vital Signs Vital Sign Reading Time Taken Comments Blood Pressure 124/72 01/09/2025 2:57 PM WASHING MACHINE STRIPER Pulse 81 01/09/2025 2:57 PM WASHING MACHINE STRIPER Temperature 36.9 C (98.5 F) 01/09/2025 2:57 PM WASHING MACHINE STRIPER Respiratory Rate 17 01/09/2025 2:57 PM WASHING MACHINE STRIPER Oxygen Saturation 100% 01/09/2025 2:57 PM WASHING MACHINE STRIPER Inhaled Oxygen Concentration - - Weight - - Height - - Body Mass Index - - Plan of Treatment Health Maintenance Due Date Last Done Comments Hepatitis C Virus (HCV) Screening 1974 Mammogram 1974 TdaP Immunization 1974 Hepatitis B Immunization (1 of 3 - 19+ 3-dose series) 1993 Pap Smear 1995 Cervical Cancer Screening (CCS) 2004 HPV/Cotest 2004 Cologuard 2019 Colonoscopy 2019 Colorectal Cancer Screening 2019 Immunochemical Fecal Occult Blood 2019 Pneumococcal Immunization (5 0+ years) (1 of 1 - PCV) 2024 Zoster Immunization (1 of 2) 2024 SARS-COV-2 Immunization (3 - 2023- season) 2024 01/19/2021, 12/22/2020 Influenza Immunization (#1) 2025 Respiratory Syncytial Virus (RSV) Immunization (Adult) (1 - 1-dose 75+ series) 2049 Human Papillomavirus (HPV) Immunization Aged Out No longer eligible b ased on patient's age to complete this topic Meningococcal Immunization (ACWY) Aged Out No longer eligible b ased on patient's age to complete this topic Rotavirus Immunization Aged Out No lo nger eligible based on patient's age to complete this topic Insurance Care Teams Die Cleaner Relationship Specialty Start Date End Date Ky Acuña MD [address] [place] [address] PCP - General Family Medicine 01/09/25
[2025-06-13 19:14] LABS: Alanine Aminotransferase 19 U/L (6-35); Albumin Level 4.2 g/dL (3.5-5.1); Alkaline Phosphatase 66 U/L (38-126); Anion Gap 5 mmol/L (4-12); Aspartate Amino Transferase 60 U/L (14-36); Bilirubin,Total 0.6 mg/dL (0.2-1.3); Blood Urea Nitrogen 18 mg/dL (7-17); Calcium 9.5 mg/dL (8.4-10.2); Carbon Dioxide 25 mmol/L (22-30); Chloride 104 mmol/L (98-107); Cholesterol 222 mg/dL (0-200); Estimated Glomerular Filt Rate > 60; Glucose 81 mg/dL (65-110); HDL Direct 93 mg/dL; Potassium 4.6 mmol/L (3.4-5.0); Sodium 134 mmol/L (137-145); Total Protein 7.6 g/dL (6.3-8.2); Triglycerides 61 mg/dL (<150)
[2025-06-13 19:26] LABS: Hematocrit 42.2 % (37.0-47.0); Hemoglobin 13.5 g/dL (12.0-15.0); Immature Granulocyte Percent A 0.2 % (0-0.5); Lymphocytes Absolute Auto 3.08 K/mm3 (0.9-3.2); Mean Corpuscular HGB Conc 32.0 g/dl (32-36); Mean Corpuscular Hemoglobin 30.3 pg (26-34); Mean Corpuscular Volume 94.6 fl (80-100); Nucleated Red Blood Cells Absolute Auto 0.000 K/mm3 (0.0-0.012); Nucleated Red Blood Cells Perc 0.0 % (0.0-0.2); Platelet Count Result 259 k/mm3 (150-375); Red Blood Count 4.46 M/mm3 (4.2-5.4); White Blood Count 6.3 K/mm3 (4.5-10.0)
[2025-06-13 19:50] LABS: Thyroid Stimulating Hormone 4.290 uIU/mL (0.465-4.680)
== END 2025-06-13 08:44 | disposition home or self-care (01) ==
LOC: ANHBWCLAB 08:45
PROVIDERS: PCP Family Medicine; Visit Provider Family Medicine
DX: Z00.00 Encounter for general adult medical examination without abnormal findings (principal); F41.9 Anxiety disorder, unspecified; E66.9 Obesity, unspecified; R74.01 Elevation of levels of liver transaminase levels; R79.89 Other specified abnormal findings of blood chemistry
CPT/HCPCS: 36415; 80053; 80061; 82172; 82306; 84443; 85025

== ENCOUNTER 2025-07-03 07:42 | Outpatient (CLI) | payer BC, SELFPAY ==
--- NOTE | ~2025-07-03 | US_ITS ---
US abdomen limited INDICATION: Elevated liver enzymes PROCEDURE: Realtime right upper abdominal ultrasound. COMPARISON: No prior studies for comparison. FINDINGS: The pancreas is normal without focal mass or pancreatic ductal dilation. Liver echotexture is normal without focal mass or intrahepatic biliary dilatation. There is normal directional flow in the portal vein. There is a 5 mm gallbladder polyp. No gallstones, gallbladder wall thickening or pericholecystic fluid. Common bile duct measures 5 mm. No sonographic Ulrich's sign. IMPRESSION: 1: Gallbladder polyp measuring 5 mm. Reviewed, dictated and finalized at location O.
== END 2025-07-03 07:43 | disposition home or self-care (01) ==
LOC: MICIMG 07:42
PROVIDERS: PCP Family Medicine; Visit Provider Family Medicine
DX: K82.4 Cholesterolosis of gallbladder (principal); R74.01 Elevation of levels of liver transaminase levels
CPT/HCPCS: 76705